=== PATIENT | female | born 1995 | race Caucasian/White ===

== ENCOUNTER → 2024-03-19 09:54 | Outpatient (REF) | payer OTHER, SELFPAY | LOC: RAD 09:54 | PROVIDERS: ATTENDING PHYSICIAN Physician Assistant Medical | DX: M25.562 Pain in left knee (principal) | CPT/HCPCS: 73564 ==

== ENCOUNTER → 2024-04-09 07:42 | Outpatient (REF) | payer OTHER, SELFPAY | LOC: MRI 07:42 | PROVIDERS: ATTENDING PHYSICIAN Physician Assistant Medical | DX: M25.562 Pain in left knee (principal) | CPT/HCPCS: 73721 ==